=== PATIENT | male | born 1970 | race Caucasian/White ===

== ENCOUNTER → 2020-10-24 | Outpatient (CLI) | payer OTHER ==
[~2020-10-24] MED LIST: IBUPROFEN600 MG PO
== END ==
LOC: KOH-I 08:30
DX: D61.818 Other pancytopenia (principal); K76.0 Fatty (change of) liver, not elsewhere classified; K83.8 Other specified diseases of biliary tract
CPT/HCPCS: 76705; 93971

== ENCOUNTER → 2021-03-11 | Outpatient (CLI) | payer OTHER | LOC: ECHO 02-26 12:30 → HEART 5 02-26 13:30 | DX: I87.312 Chronic venous hypertension (idiopathic) with ulcer of left lower extremity (principal); I87.323 Chronic venous hypertension (idiopathic) with inflammation of bilateral lower extremity | CPT/HCPCS: 93306; 93970 ==